=== PATIENT | female | born 1950 | race Caucasian/White ===

== ENCOUNTER → 2017-08-27 | Outpatient (CLI) | payer OTHER ==
[~2017-08-27] MED LIST: ACET-1311 PO; CALC500C70 PO; ESCI10TA17 PO; FMR25 PO; IBUP-1050 PO
[2017-08-27 14:55] VITALS: BP_SYST 116; BP_SYST 151; BP_DIAS 70; BP_DIAS 87; PULSE 76; TEMP 36.7; O2SAT 95
--- NOTE | 2017-08-27 16:24 | Radiation Oncology Follow-Up ---
Radiation Oncology Follow-Up Date of Visit Aug 27, 2017. Reason For Visit One-month follow-up and cancer survivorship care plan Radiation Completion Date 07/15/17 Diagnosis (1) Breast cancer of upper-inner quadrant of left female breast Status: Resolved Onset Date: 08/17/2016 Histology Subtype: lobular Stage: lll (A) Permanent Comment: Abnormal left breast mammogram Status post stereotactic biopsy 08/17/2016 Invasive lobular carcinoma Estrogen receptor positive, progesterone receptor positive, HER-2/gagandeep negative Status post repeat left breast biopsy 09/21/2016, same outcome Status post neoadjuvant chemotherapy with Adriamycin and Cytoxan for 4 cycles then weekly Taxol for 12 weeks Status post left mastectomy and sentinel lymph node biopsy and axillary dissection, and immediate placement of tissue expanders Stage ypT2 ypN2a M0 Status post completion of radiation therapy 07/15/2017. She received 6240 cGy. Last Edited By: Sinai Car on Aug 27, 2017 16:24 History of Present Illness Ms. Olmedo presented with an abnormal screening mammogram on 08/06/2016; the mammogram revealed a slightly prominent spiculated density in left breast. She underwent a unilateral left mammogram on 08/13/2016 which revealed persistence of the density in the upper outer quadrant of the left breast. During the same evaluation, she underwent a unilateral ultrasound of the left breast which confirmed a ill-defined hypoechoic mass measuring 1.6 cm in the greatest dimension. She underwent a ultrasound-guided biopsy of the left breast on 08/17 which revealed invasive lobular breast carcinoma that is estrogen receptor positive, progesterone receptor positive and HER-2 negative. She underwent a MRI of the bilateral breasts on 09/17/2016 which revealed: 1. Linear 4.0 x 3.0 x 2.5 cm area of clumped non-mass enhancement at the site of known cancer in the upper outer quadrant. BIRADS 6, biopsy-proven malignancy. Appropriate action is recommended. 2. Numerous satellite lesions involving all four quadrants. BIRADS 4, suspicious. If breast conservation therapy is planned, additional biopsies will be necessary to define extent of disease. Targeted ultrasound could be performed for biopsy-planning purposes. 3. Enlarged left axillary lymph node. BIRADS 4, suspicious. Targeted ultrasound could be performed for biopsy-planning purposes if desired. She underwent a second look ultrasound of the left breast utilizing the recent MRI of the breast on 09/21/2016 and a biopsy of a second left breast mass measuring 3 mm was biopsied which revealed invasive lobular carcinoma that was grade 2 that was also estrogen receptor positive, progesterone receptor positive and HER-2 negative. She underwent a PET/CT scan on 09/18/2016 which revealed: "IMPRESSION: Mild focal uptake in the lateral left breast adjacent to the biopsy site, most consistent with known invasive lobular carcinoma. Left axillary lymph nodes are not FDG avid. Multiple tiny sclerotic foci throughout the pelvis, spine and to a lesser degree in the ribs. The distribution is concerning for metastases. Comparison with prior studies, if available, may be helpful to assess stability. A benign process that could have this appearance is osteopoikilosis, though this tends to favor the appendicular skeleton. Mild diffuse marrow uptake. This is a nonspecific finding which, in a patient that has not received chemotherapy, can be seen as reactive from hematopoiesis, related to diffuse systemic infection/inflammation, tumor cytokines or diffuse marrow metastases." She had a follow-up bone scan on 10/04/2016 which revealed no scintigraphic evidence of osteoblastic metastatic disease. She then underwent neoadjuvant A/C/T chemotherapy underneath the supervision of Dr. Rajiv Antonio. She completed chemotherapy in January 2017. She underwent a MRI of the bilateral breasts on 03/01/2017 which showed a good response neoadjuvant chemotherapy with no remaining suspicious mass or masslike enhancement as well as no adenopathy. She underwent a restaging PET/CT scan on 03/07/2017 which revealed no evidence of metabolic activity or metastatic disease; with respect to the axial skeleton, there was redemonstration of multiple tiny sclerotic foci and it was not possible to rule out metastatic disease to the bone. She underwent a left breast mastectomy and left axillary lymph node dissection by Dr. Laura Neely on 04/09/2017. Pathology revealed invasive lobular carcinoma that was grade 2 and measured 2.6 cm in the greatest dimension and is multifocal in nature. 12 lymph nodes were resected and 6 were positive for macrometastatic disease and 2 were positive for micrometastatic disease; extranodal extension was noted. The patient was staged as [id number]. During the same procedure, the patient underwent immediate reconstruction with placement of a unilateral left tissue hand coremaker by Dr. Cox. We are now seeing the patient in consultation discuss the role of radiation therapy. Of note, the patient continues to have difficulty with range of motion since surgery and will be undergoing physical therapy evaluation shortly. Additionally, the patient did have one instillation of saline into her left tissue hand coremaker and is scheduled to go back for another instillation next week. She did not complete her installations. She wanted to get started with radiation therapy as soon as possible. She will contemplate reconstructive surgery at a later date. She understood the effects that radiation will have on the area of treatment. She'll not be able to have further tissue expansion. She returned for CT simulation and began radiation therapy. Her treatments were completed 07/15/2017. She received 6240 cGy. Interim History She's been doing well over the past month. There is mild itching of the skin at the completion of treatment. This has resolved. She did not have any dryness or peeling. She did not have any wet or dry desquamation. She does have some resolving darker discoloration to the skin. She has been started on antiestrogen therapy and is on Femara. She does have aching discomfort of the hips and her back. She has reviewed this with Dr. Antonio and is going to be having a CAT scan on . Allergies Coded Allergies: Penicillins (Verified Allergy, Severe, Swelling of face/eyes/rash , ) Home Medications Scheduled Calcium/Vitamin D (Os-Wil 500 Plus D), 1 TAB PO BID Escitalopram (Lexapro), 10 MG PO DAILY Letrozole (Femara), 1 TAB PO DAILY Scheduled PRN Acetaminophen (Tylenol), 325 MG PO Q6 PRN for Moderate Pain Ibuprofen (Advil), 200 MG PO for prn Review of Systems Gastrointestinal: Symptoms: WNL Oral: Symptoms: No Problems Respiratory: Symptoms: WNL Urinary: Symptoms: WNL Skin: Symptoms: No Problems Other Skin Symptoms: Uses aquaphor to left axilla - no problem noted; Breast: Right Upper Arm Measurement: 30.5 Right Mid Arm Measurement: 24.8 Right Wrist Measurement: 16.0 Left Upper Arm Measurement: 30.5 Left Mid Arm Measurement: 25.0 Left Wrist Measurement: 16.0 Arm Dominence: Right Physical Exam Vital Signs Date Time Temp Pulse Resp B/P (MAP) Pulse Ox O2 Delivery O2 Flow Rate FiO2 08/27/17 14:55 36.7 76 20 151/87 95 116/70 Fatigue: None General Appearance: no apparent distress Eyes: normal inspection, EOMI ENT: normal ENT inspection, hearing grossly normal Neck: no adenopathy, thyroid normal Respiratory/Chest: lungs clear, no respiratory distress, no accessory muscle use Breast: Breast examination reveals tissue hand coremaker on the left. Her skin is well- healed. There is no erythema or edema. She has no areas wet or dry desquamation. She has resolving hyperpigmentation. There is no axillary adenopathy. Using the [place] score cosmesis she has a good outcome. The right breast showed no masses or tenderness and no axillary adenopathy. Cardiovascular: regular rate, rhythm, no gallop, no murmur Extremities: no pedal edema Neurologic/Psychiatric: no motor/sensory deficits, alert, normal mood/affect Skin: warm/dry Pain Management Pain Rating (0-10): 5 Pain Management Plan Joint pain which she relates to [place]. She takes [id number] analgesic with relief of pain. Laboratory Studies Test 05/29/17 18:16 Thyroid Stimulating Hormone (TSH) 3.700 uIu/ml (0.300-4.500) Assessment & Plan Plan: Her records were reviewed and she is due for mammography of the right breast. She has a follow-up appointment with the plastic surgeon to discuss future surgery and placement of the permanent implant. She continues with [facility] and will be following up with Dr. Antonio. She was also seen and examined by Dr. Neil. Today we completed a cancer survivorship care plan. A copy of the document was given to the patient. She was given a survivorship booklet. We asked her to return to our office in 6 months. She may call if she has any questions or concerns in the interim. Assessment & Plan (Attending) ADDENDUM: I agree with note created by Sinai Car PA-C. I reviewed the patient's chart and information with her. I have examined and evaluated the patient. I reviewed relevant clinical information and answered the patient's and /or family's questions. AGILE SCRUM COACH Total Time In Follow-Up I spent 20 minutes being to the patient about performing examination. I spent 20 minutes reviewing information, preparing the survivorship document, and completing this note. [place] Total Time (Attending) In Follow-Up I spent 15 minutes examining and counseling the patient. AGILE SCRUM COACH Copy To Elias Prieto M.D.; Tyler oCx M.D.; Laura Neely MD; Rajiv Antonio MD Problem Qualifiers (1) Breast cancer of upper-inner quadrant of left female breast: Estrogen receptor status: positive Qualified Codes: C50.212 - Malignant neoplasm of upper-inner quadrant of left female breast; Z17.0 - Estrogen receptor positive status [ER+]
== END | disposition home or self-care (01) ==
LOC: C.ONC 14:47
PROVIDERS: ATTEND Physician Assistant Medical
DX: Z08 Encounter for follow-up examination after completed treatment for malignant neoplasm (principal); Z92.3 Personal history of irradiation; Z85.3 Personal history of malignant neoplasm of breast

== ENCOUNTER → 2018-01-22 | Outpatient (CLI) | payer OTHER ==
--- NOTE | 2018-01-22 13:49 | DIAGNOSTIC IMAGING REPORT ---
PET/CT CLINICAL HISTORY: Lobular carcinoma of the left breast. COMPARISON STUDY: Chest CT dated 11/05/2017. PET/CT dated 09/18/2017. TECHNIQUE: One hour following the IV administration of 12.35 mCi of F-18 FDG, PET/CT examination was performed from the orbital meatal line through the bony pelvis. Noncontrast CT is performed for the purposes of anatomic correlation and attenuation correction. Note that this does not reflect a diagnostic CT examination. Images were reviewed on a separate [employer] independent workstation. Fused images were obtained. Standard uptake values reported are maximum values within the region of interest expressed in gm/mL. FINDINGS: PET FINDINGS: Head and neck: There is expected physiologic activity within the visualized brain parenchyma at the skull base and the salivary glands. Thorax: Evaluation of the thorax demonstrates expected physiologic myocardial activity. Again seen are lesions in the upper lobes bilaterally, best visualized on image #66. These have decreased in size from prior studies. The right upper lobe opacity measures up to 0.7 cm and demonstrates a maximum SUV of 2.3. The left upper lobe opacity measures up to 1.5 cm demonstrates a maximum SUV of 2.5. A lesion in the right lower lobe has almost completely resolved as compared to prior studies. Only mild left apical scarring is identified posteriorly on image #56. Demonstrates only faint FDG activity on today's examination a maximum SUV of 1.7. No new pulmonary lesion is seen. There is ill-defined soft tissue thickening identified in the left chest wall around the breast implant. This demonstrates diffuse FDG activity with a maximum SUV of 2.7. Focal activity is left lateral lower chest wall on image #105 and demonstrates a maximum SUV of 3.8. There is ill-defined soft tissue thickening in the right lateral chest wall below the right breast seen on image #105 with maximum SUV of 2.0. There is no FDG avid mediastinal, hilar, axillary, subpectoral, or internal mammary adenopathy. Abdomen and pelvis: There is expected activity within the liver, spleen, kidneys, renal collecting system, and bladder. Low-level bowel activity is likely within physical limits. 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 Numerous tiny lesions are seen throughout all of the visualized bony structures. The largest lesion is seen in the body of L3 and measures up to 10 mm. These are FDG avid but difficult to assess due to small size. Sacral lesions demonstrate a maximum SUV of 2.4. Unenhanced CT images: The partially imaged brain parenchyma at the skull base is normal in appearance. The orbital contents are normal as visualized. The visualized paranasal sinuses and the mastoid air cells are clear. The salivary glands are normal as visualized. The thyroid gland is atrophic. A right internal jugular central venous infusion port is in place. No cervical lymphadenopathy is seen. The thoracic aorta is normal in caliber. The heart is normal in size and there is trace pericardial fluid. The left breast is surgically absent with an implant in place. There is no airspace consolidation typical for pneumonia or pleural effusion. Calcified granulomas are seen in the right upper lobe. See above under PET findings for additional pulmonary discussion. The unenhanced liver, gallbladder, spleen, pancreas, adrenal glands, and kidneys are grossly unremarkable. The abdominal aorta is normal in caliber noting moderate atherosclerotic calcification. No bowel obstruction is identified. There is moderate colonic diverticulosis without CT evidence of acute diverticulitis. A normal appendix is identified. There is no intraperitoneal free air or abdominal ascites. No abdominal, pelvic, or inguinal lymphadenopathy is identified. The bladder is decompressed and grossly unremarkable. The uterus is normal as visualized. No adnexal lesion is seen. The skeletal structures are osteopenic. A hemangioma is noted in the thoracic spine. See above for additional osseous findings. IMPRESSION: 1. Findings of multifocal osteoblastic metastatic disease have not significantly changed from 09/18/2017. 2. There are FDG avid upper lobe pulmonary opacities. These have significantly decreased in size from prior studies. The right lower lobe lesion seen previously has almost completely resolved. 3. No new pulmonary lesion is identified. 4. The left breast is surgically absent. 5. There is diffuse FDG avid soft tissue thickening identified around the left breast implant. Foci of ill-defined soft tissue thickening and FDG activity are also present within the lateral lower chest wall bilaterally. These findings are nonspecific could be on an inflammatory or treatment related basis. Neoplasm is not excluded. 6. There is no evidence of FDG avid visceral metastatic disease in the abdomen or pelvis. 7. Additional findings as above. Electronically signed by: Reddy Nayak M.D. 01/22/2018 1:47 PM Dictated Date/Time: 01/22/2018 1:17 PM
== END | disposition home or self-care (01) ==
LOC: C.PET 10:40
PROVIDERS: ATTEND Internal Medicine Hematology & Oncology
DX: C50.912 Malignant neoplasm of unspecified site of left female breast (principal); C79.62 Secondary malignant neoplasm of left ovary; C79.61 Secondary malignant neoplasm of right ovary; R91.8 Other nonspecific abnormal finding of lung field